=== PATIENT | female | born 1965 | race African-American/Black ===

== ENCOUNTER 2018-05-17 08:38 | Emergency (ER) | payer SELFPAY ==
[~2018-05-17] VITALS: Ht 175.3 cm; Wt 91.0 kg
[2018-05-17] MEDS ORDERED: MAGNESIUM/ALUMINUM HYDROXIDE/SIMETHICONE 30ML UDC PO ONE (11:00)
[2018-05-17] MEDS ORDERED: KETOROLAC 60MG/2ML VIAL IM ONE (11:00)
[2018-05-17 12:35] VITALS: BP 122/76
== END 2018-05-17 12:43 | disposition home or self-care (01) ==
LOC: ER 09:47
DX: M79.18 Myalgia, other site (principal); F17.200 Nicotine dependence, unspecified, uncomplicated; M06.9 Rheumatoid arthritis, unspecified; Z98.51 Tubal ligation status
CPT/HCPCS: 73030; 96372; 99283; J1885